=== PATIENT | male | born 1965 | race Caucasian/White ===

== ENCOUNTER 2017-07-27 17:57 | Inpatient (IN) | payer BC ==
[~2017-07-27] VITALS: Ht 185.4 cm; Wt 80.1 kg
[2017-07-27] MEDS ORDERED: morphine 4 MG/ML inj SYRINge IV ONE (18:25)
[2017-07-27] MEDS ORDERED: aspirin 81mg tab.chew PO ONE ×2 (18:25→23:55)
[2017-07-27] MEDS ORDERED: nitroGLYCERIN 0.4mg SUBLingual tab SL PRN (18:25)
[2017-07-27 18:41] LABS: BASOPHILS % (AUTO) 0 % (0-1); EOSINOPHILS # (AUTO) 0.2 X10'3 (0-0.9); EOSINOPHILS % (AUTO) 1.6 % (0-6); HEMATOCRIT 44.2 % (42.0-52.0); LYMPHOCYTES # (AUTO) 0.6 X10'3 (1.1-4.8); LYMPHOCYTES % (AUTO) 4.4 % (21-51); MEAN CORPUSCULAR HEMOGLOBIN 29.7 PG (27.0-31.0); MEAN CORPUSCULAR HGB CONC 33.9 % (33.0-36.5); MEAN CORPUSCULAR VOLUME 87.7 FL (78-98); MEAN PLATELET VOLUME 8.6 FL (7.4-10.4); MONOCYTES # (AUTO) 0.4 X10'3 (0-0.9); MONOCYTES % (AUTO) 2.9 % (2-12); NEUTROPHILS # (AUTO) 11.6 X10'3 (1.8-7.7); NEUTROPHILS % (AUTO) 91.1 % (42-75); PLATELET COUNT 257 X10'3 (140-440); RED BLOOD COUNT 5.04 X10'6 (4.70-6.10); RED CELL DISTRIBUTION WIDTH 13.1 % (11.5-14.5); WHITE BLOOD COUNT 12.7 X10'3 (4.5-11.0)
[2017-07-27 18:58] LABS: ALANINE AMINOTRANSFERASE 30 U/L (12-78); ALBUMIN/GLOBULIN RATIO 1.1 (1.1-1.5); ALKALINE PHOSPHATASE 64 IU/L (46-116); ANION GAP 12 (8-16); ASPARTATE AMINO TRANSFERASE 40 U/L (10-37); BILIRUBIN,TOTAL 0.7 MG/DL (0.1-1.0); BLOOD UREA NITROGEN 14 MG/DL (7-18); BUN/CREATININE RATIO 15.9 (5.4-32.0); CALCIUM 8.9 MG/DL (8.5-10.1); CHLORIDE 102 MMOL/L (99-107); CREATININE 0.88 MG/DL (0.60-1.10); GLUCOSE 141 MG/DL (70-104); MAGNESIUM 1.8 MG/DL (1.5-2.4); POTASSIUM 4.1 MMOL/L (3.5-5.1); SODIUM 140 MMOL/L (135-145); TOTAL CARBON DIOXIDE 25.9 MMOL/L (24-32); TOTAL PROTEIN 7.5 G/DL (6.4-8.2); eGFR > 90 ML/MIN
[2017-07-27] MEDS ORDERED: heparin 10,000 units/1 ML INJ IV PRN ×2 (19:00→23:45)
[2017-07-27] MEDS ORDERED: heparin 10,000 units/1 ML INJ IV ONE (19:00)
[2017-07-27] MEDS ORDERED: ondansetron/PF 4mg/2ml inj IV ONE (19:00)
[2017-07-27 19:16] LABS: INR 0.9 INR; PARTIAL THROMBOPLASTIN TIME 22 SECONDS (22-32); PROTHROMBIN TIME 9.8 SECONDS (9.0-12.0)
[2017-07-27] MEDS ORDERED: levoFLOXACIN-Levaquin 500mg/D5 100 ML IV ONE (19:45)
[2017-07-27] MEDS ORDERED: iohexol 350MG/ML 100ml bottle IV ONE ×3 (19:51→21:25)
[2017-07-27 19:54] LABS: TOTAL CELLS COUNTED 100
[2017-07-27 19:55] LABS: PLATELET ESTIMATE NORMAL
[2017-07-27] MEDS ORDERED: carVEDilol 3.125mg tablet PO SCH (20:00)
[2017-07-27] MEDS ORDERED: nitroGLYCERIN-Tridil 50MG/D5W 250 ML IV ONE (20:29)
[2017-07-27] MEDS ORDERED: fentaNYL/PF 50MCG/1 ML 2ML syringe ONE (20:30)
[2017-07-27] MEDS ORDERED: iohexol 350 MG/ML 50ML vial IV ONE (20:30)
[2017-07-27] MEDS ORDERED: heparin 1,000unit/ml 10ml vial 10 ML ONE (20:30)
[2017-07-27] MEDS ORDERED: LIDOcaine 1%/PF (10mg/ml) 5ml vial ONE (20:30)
[2017-07-27] MEDS ORDERED: midazolam 2 mg/2 ml injection ONE (20:30)
[2017-07-27] MEDS ORDERED: temazepam 15mg capsule PO PRN (21:00)
[2017-07-27] MEDS ORDERED: normal saline 1000ml 1,000 ML IV SCH ×2 (21:01→23:30)
[2017-07-27] MEDS ORDERED: mag hydrox/Alum hydrox/simeth 30ml oral suspension PO PRN (21:05)
[2017-07-27] MEDS ORDERED: potassium Cl 20 mEq SR tablet PO PRN ×2 (21:05)
[2017-07-27] MEDS ORDERED: acetaminophen 325mg tablet PO PRN (21:05)
[2017-07-27] MEDS ORDERED: ondansetron/PF 4mg/2ml inj IV PRN (21:05)
[2017-07-27] MEDS ORDERED: magnesium Cl slow-release 64mg tablet PO PRN (21:05)
[2017-07-27] MEDS ORDERED: magnesium 4gm in 100ml NS 100 ML IV PRN (21:05)
[2017-07-27] MEDS ORDERED: potassium Cl 40MEQ/NS 500ml 500 ML IV PRN ×2 (21:05)
[2017-07-27] MEDS ORDERED: morphine 2 MG/ML inj. syringe IV PRN (21:05)
[2017-07-27] MEDS ORDERED: magnesium hydroxide 30ml (MOM) UD suspension PO PRN (21:05)
[2017-07-27] MEDS ORDERED: magnesium 2GM in 50ml NS 50 ML IV PRN (21:05)
[2017-07-27] MEDS ORDERED: thiamine 100mg/ml 2ml inj. IV ONE (21:20)
[2017-07-27] MEDS ORDERED: dextrose 50%-water 50ml dispensing syringe IV PRN (21:20)
[2017-07-27] MEDS ORDERED: haloperidol lactate 5mg/ml inj IM PRN (21:20)
[2017-07-27] MEDS ORDERED: LORazepam 2 mg/ml vial IV PRN (21:20)
[2017-07-27] MEDS ORDERED: haloperidol 5mg tablet PO PRN (21:20)
[2017-07-27] MEDS ORDERED: tirofiban 5mg in NS 100mL 100 ML IV ONE ×2 (21:37→22:46)
[2017-07-27] MEDS ORDERED: furosemide 40mg/4ml inj ONE (22:12)
[2017-07-27] MEDS ORDERED: ticagrelor 90mg tablet ONE (22:12)
[2017-07-27 22:45] VITALS: BP 139/96
[2017-07-27 23:00] VITALS: BP 152/82
[2017-07-27] MEDS ORDERED: normal saline 1000ml 1,000 ML IV ONE (23:30)
[2017-07-27] MEDS ORDERED: OXAZEpam 15mg capsule PO PRN (23:45)
[2017-07-28] VITALS (24 sets, daily range): BP systolic 91–156; BP diastolic 58–89
[2017-07-28] MEDS ORDERED: cyclobenzaprine 10mg tablet PO PRN (00:05)
[2017-07-28] MEDS ORDERED: acetaminophen 325mg tablet PO PRN (00:05)
[2017-07-28] MEDS: LORazepam 1 MG tablet PO PRN (00:06)
[2017-07-28] MEDS: tirofiban 5mg in NS 100mL 100 ML IV SCH ×4 (03:10→17:55)
[2017-07-28 03:54] LABS: BASOPHILS # (AUTO) 0.1 X10'3 (0-0.2); BASOPHILS % (AUTO) 0.5 % (0-1); EOSINOPHILS # (AUTO) 0.1 X10'3 (0-0.9); HEMATOCRIT 40.7 % (42.0-52.0); HEMOGLOBIN 14.2 g/dl (14.0-17.9); LYMPHOCYTES # (AUTO) 0.5 X10'3 (1.1-4.8); LYMPHOCYTES % (AUTO) 4.2 % (21-51); MEAN CORPUSCULAR HGB CONC 34.9 % (33.0-36.5); MEAN CORPUSCULAR VOLUME 86.2 FL (78-98); MEAN PLATELET VOLUME 8.6 FL (7.4-10.4); MONOCYTES # (AUTO) 0.6 X10'3 (0-0.9); MONOCYTES % (AUTO) 4.7 % (2-12); NEUTROPHILS # (AUTO) 10.6 X10'3 (1.8-7.7); NEUTROPHILS % (AUTO) 89.6 % (42-75); PLATELET COUNT 274 X10'3 (140-440); RED BLOOD COUNT 4.73 X10'6 (4.70-6.10); RED CELL DISTRIBUTION WIDTH 13.6 % (11.5-14.5); WHITE BLOOD COUNT 11.8 X10'3 (4.5-11.0)
[2017-07-28 04:26] LABS: ALBUMIN 3.7 G/DL (3.4-5.0); ANION GAP 13 (8-16); BLOOD UREA NITROGEN 13 MG/DL (7-18); BUN/CREATININE RATIO 15.7 (5.4-32.0); CALCIUM 8.1 MG/DL (8.5-10.1); CHLORIDE 103 MMOL/L (99-107); CHOL/HDL RATIO 2.3 (0.00-4.99); CHOLESTEROL 143 MG/DL (0-200); CREATININE 0.83 MG/DL (0.60-1.10); GLUCOSE 140 MG/DL (70-104); HDL CHOLESTEROL 62 MG/DL (35-60); LDL CHOLESTEROL 75 MG/DL (50-100); POTASSIUM 3.6 MMOL/L (3.5-5.1); SODIUM 139 MMOL/L (135-145); TOTAL CARBON DIOXIDE 22.8 MMOL/L (24-32); TRIGLYCERIDES 27 MG/DL (20-135); eGFR > 90 ML/MIN
[2017-07-28 05:57] LABS: CKMB RELATIVE INDEX 15.7 RATIO (0-2.5); CREATINE KINASE 3524 U/L (39-308)
[2017-07-28] MEDS: K and/or MAG REPLACEMENT MC SCH (08:00)
[2017-07-28] MEDS ORDERED: aspirin 81mg tab.chew PO SCH (08:30)
[2017-07-28] MEDS: furosemide 20 MG/2 ML vial IV SCH ×2 (09:25→20:57)
[2017-07-28] MEDS: ticagrelor 90mg tablet PO SCH ×2 (09:25→20:57)
[2017-07-28] MEDS: potassium Cl 20 mEq SR tablet PO SCH ×2 (09:25→17:55)
[2017-07-28] MEDS: docusate sod 100mg capsule PO SCH ×2 (09:25→20:54)
[2017-07-28] MEDS: lisinopril 5mg tablet PO SCH (09:26)
[2017-07-28] MEDS: aspirin 81mg tab.chew PO SCH (09:27)
[2017-07-28] MEDS: spironolactone 25 MG tablet PO SCH (09:27)
[2017-07-28] MEDS: levoFLOXACIN-Levaquin 500mg/D5 100 ML IV SCH (09:27)
[2017-07-28] MEDS: metoprolol tartrate 25mg tablet PO SCH ×2 (09:27→20:54)
[2017-07-28] MEDS ORDERED: pneumococcal 23-VAL P-sac vacc 25 mcg/0.5ml vial IMVAC ONE (10:00)
[2017-07-28] MEDS ORDERED: FLU VACC QS2017-18 36MOS UP/PF 60 MCG/0.5 ML SYRINGE IMVAC ONE (10:00)
[2017-07-28] MEDS: morphine 2 MG/ML inj. syringe IV PRN ×2 (10:42→17:44)
[2017-07-28] MEDS: oseltamivir phos 75mg capsule PO SCH ×2 (12:43→20:54)
[2017-07-28 13:09] LABS: CKMB RELATIVE INDEX 8.1 RATIO (0-2.5)
[2017-07-28 13:33] LABS: TROPONIN I 52.49 NG/ML (0.0-0.05)
[2017-07-28] MEDS ORDERED: potassium Cl 20 mEq SR tablet PO STA (14:14)
[2017-07-28] MEDS ORDERED: magnesium 2GM in 50ml NS 50 ML IV ONE (14:15)
[2017-07-28] MEDS ORDERED: potassium Cl 20 mEq SR tablet PO PRN ×2 (14:20)
[2017-07-28] MEDS ORDERED: potassium Cl 40MEQ/250ML bag 250 ML IV PRN ×2 (14:20)
[2017-07-28] MEDS ORDERED: magnesium Cl slow-release 64mg tablet PO PRN (14:20)
[2017-07-28] MEDS ORDERED: potassium Cl 40MEQ/NS 500ml 500 ML IV PRN ×2 (14:20)
[2017-07-28] MEDS ORDERED: magnesium 4gm in 100ml NS 100 ML IV PRN (14:20)
[2017-07-28] MEDS ORDERED: magnesium 2GM in 50ml NS 50 ML IV PRN (14:20)
[2017-07-28] MEDS: thiamine 100mg tablet PO SCH (16:01)
[2017-07-28] MEDS: lactobacillus rhamnosus 10,000 MMU CELLS/CAPSULE PO SCH (17:54)
[2017-07-28] MEDS: magnesium hydroxide 30ml (MOM) UD suspension PO SCH (20:48)
[2017-07-28] MEDS: atorvastatin 20mg tablet PO SCH (20:48)
[2017-07-28 21:19] LABS: CKMB RELATIVE INDEX 4.9 RATIO (0-2.5)
[2017-07-28 21:45] LABS: TROPONIN I 56.06 NG/ML (0.0-0.05)
[2017-07-29] VITALS (21 sets, daily range): BP systolic 82–140; BP diastolic 55–94
[2017-07-29 05:49] LABS: BASOPHILS % (AUTO) 0.3 % (0-1); EOSINOPHILS # (AUTO) 0.1 X10'3 (0-0.9); EOSINOPHILS % (AUTO) 1.4 % (0-6); HEMATOCRIT 45.4 % (42.0-52.0); HEMOGLOBIN 15.7 g/dl (14.0-17.9); LYMPHOCYTES # (AUTO) 1.4 X10'3 (1.1-4.8); LYMPHOCYTES % (AUTO) 14.3 % (21-51); MEAN CORPUSCULAR HEMOGLOBIN 29.9 PG (27.0-31.0); MEAN CORPUSCULAR HGB CONC 34.5 % (33.0-36.5); MEAN CORPUSCULAR VOLUME 86.6 FL (78-98); MEAN PLATELET VOLUME 8.8 FL (7.4-10.4); MONOCYTES % (AUTO) 10.4 % (2-12); NEUTROPHILS % (AUTO) 73.6 % (42-75); PLATELET COUNT 271 X10'3 (140-440); RED BLOOD COUNT 5.24 X10'6 (4.70-6.10); RED CELL DISTRIBUTION WIDTH 13.8 % (11.5-14.5); WHITE BLOOD COUNT 9.5 X10'3 (4.5-11.0)
[2017-07-29] MEDS: tirofiban 5mg in NS 100mL 100 ML IV SCH (05:50)
[2017-07-29 06:00] LABS: ALBUMIN 3.4 G/DL (3.4-5.0); ANION GAP 11 (8-16); BLOOD UREA NITROGEN 16 MG/DL (7-18); BUN/CREATININE RATIO 18.2 (5.4-32.0); CALCIUM 8.5 MG/DL (8.5-10.1); CHLORIDE 103 MMOL/L (99-107); CREATININE 0.88 MG/DL (0.60-1.10); GLUCOSE 96 MG/DL (70-104); MAGNESIUM 2.2 MG/DL (1.5-2.4); POTASSIUM 4.2 MMOL/L (3.5-5.1); SODIUM 138 MMOL/L (135-145); TOTAL CARBON DIOXIDE 23.7 MMOL/L (24-32); eGFR > 90 ML/MIN
[2017-07-29] MEDS: docusate sod 100mg capsule PO SCH ×2 (08:00→19:10)
[2017-07-29] MEDS: metoprolol tartrate 25mg tablet PO SCH ×2 (08:00→19:10)
[2017-07-29] MEDS: K and/or MAG REPLACEMENT MC SCH ×2 (08:00)
[2017-07-29] MEDS: lisinopril 5mg tablet PO SCH (08:00)
[2017-07-29] MEDS: potassium Cl 20 mEq SR tablet PO SCH ×2 (08:07→12:44)
[2017-07-29] MEDS: ticagrelor 90mg tablet PO SCH ×2 (08:07→19:10)
[2017-07-29] MEDS: levoFLOXACIN-Levaquin 500mg/D5 100 ML IV SCH (08:07)
[2017-07-29] MEDS: spironolactone 25 MG tablet PO SCH (08:07)
[2017-07-29] MEDS: lactobacillus rhamnosus 10,000 MMU CELLS/CAPSULE PO SCH ×2 (08:07→17:20)
[2017-07-29] MEDS: thiamine 100mg tablet PO SCH (08:07)
[2017-07-29] MEDS: furosemide 20 MG/2 ML vial IV SCH (08:07)
[2017-07-29] MEDS: aspirin 81mg tab.chew PO SCH (08:08)
[2017-07-29] MEDS: LORazepam 1 MG tablet PO PRN (11:43)
[2017-07-29] MEDS: oseltamivir phos 75mg capsule PO SCH ×3 (12:20→21:39)
[2017-07-29] MEDS: atorvastatin 20mg tablet PO SCH (19:09)
[2017-07-29] MEDS: magnesium hydroxide 30ml (MOM) UD suspension PO SCH (19:11)
[2017-07-30] VITALS (7 sets, daily range): BP systolic 85–109; BP diastolic 50–69
[2017-07-30 06:56] LABS: BASOPHILS % (AUTO) 0.2 % (0-1); EOSINOPHILS # (AUTO) 0.1 X10'3 (0-0.9); EOSINOPHILS % (AUTO) 0.6 % (0-6); HEMATOCRIT 47.2 % (42.0-52.0); HEMOGLOBIN 16.2 g/dl (14.0-17.9); LYMPHOCYTES # (AUTO) 1.6 X10'3 (1.1-4.8); LYMPHOCYTES % (AUTO) 15.3 % (21-51); MEAN CORPUSCULAR HGB CONC 34.4 % (33.0-36.5); MEAN CORPUSCULAR VOLUME 87.2 FL (78-98); MEAN PLATELET VOLUME 9.1 FL (7.4-10.4); MONOCYTES # (AUTO) 1.1 X10'3 (0-0.9); MONOCYTES % (AUTO) 10.5 % (2-12); NEUTROPHILS # (AUTO) 7.6 X10'3 (1.8-7.7); NEUTROPHILS % (AUTO) 73.4 % (42-75); PLATELET COUNT 288 X10'3 (140-440); RED BLOOD COUNT 5.41 X10'6 (4.70-6.10); RED CELL DISTRIBUTION WIDTH 13.6 % (11.5-14.5); WHITE BLOOD COUNT 10.3 X10'3 (4.5-11.0)
[2017-07-30 07:27] LABS: ALBUMIN 3.2 G/DL (3.4-5.0); ANION GAP 11 (8-16); BLOOD UREA NITROGEN 19 MG/DL (7-18); BUN/CREATININE RATIO 21.1 (5.4-32.0); CALCIUM 8.9 MG/DL (8.5-10.1); CHLORIDE 101 MMOL/L (99-107); GLUCOSE 106 MG/DL (70-104); MAGNESIUM 2.2 MG/DL (1.5-2.4); POTASSIUM 3.8 MMOL/L (3.5-5.1); SODIUM 137 MMOL/L (135-145); TOTAL CARBON DIOXIDE 24.9 MMOL/L (24-32); eGFR 88 ML/MIN
[2017-07-30] MEDS: K and/or MAG REPLACEMENT MC SCH ×2 (08:00)
[2017-07-30] MEDS: lactobacillus rhamnosus 10,000 MMU CELLS/CAPSULE PO SCH ×2 (08:00→17:40)
[2017-07-30] MEDS: metoprolol tartrate 25mg tablet PO SCH (08:00)
[2017-07-30] MEDS: thiamine 100mg tablet PO SCH (08:01)
[2017-07-30] MEDS: potassium Cl 20 mEq SR tablet PO SCH ×2 (08:01→16:45)
[2017-07-30] MEDS: levoFLOXACIN-Levaquin 500mg/D5 100 ML IV SCH (08:01)
[2017-07-30] MEDS: aspirin 81mg tab.chew PO SCH (08:02)
[2017-07-30] MEDS: docusate sod 100mg capsule PO SCH ×2 (08:02→20:00)
[2017-07-30] MEDS: spironolactone 25 MG tablet PO SCH (08:04)
[2017-07-30] MEDS: lisinopril 5mg tablet PO SCH (08:04)
[2017-07-30] MEDS ORDERED: oseltamivir phos 75mg capsule PO ONE (09:30)
[2017-07-30] MEDS: ticagrelor 90mg tablet PO SCH ×2 (09:31→20:36)
[2017-07-30] MEDS: metoprolol tartrate 12.5mg (1/2 tablet) PO SCH (20:00)
[2017-07-30] MEDS: atorvastatin 20mg tablet PO SCH (20:34)
[2017-07-30] MEDS: oseltamivir phos 75mg capsule PO SCH (20:35)
[2017-07-30] MEDS: magnesium hydroxide 30ml (MOM) UD suspension PO SCH (20:36)
[2017-07-31 03:00] VITALS: BP 92/61
[2017-07-31 05:49] LABS: BASOPHILS % (AUTO) 0.2 % (0-1); EOSINOPHILS # (AUTO) 0.1 X10'3 (0-0.9); EOSINOPHILS % (AUTO) 1.4 % (0-6); HEMATOCRIT 46.5 % (42.0-52.0); HEMOGLOBIN 15.9 g/dl (14.0-17.9); LYMPHOCYTES # (AUTO) 2.1 X10'3 (1.1-4.8); LYMPHOCYTES % (AUTO) 23.1 % (21-51); MEAN CORPUSCULAR HEMOGLOBIN 29.8 PG (27.0-31.0); MEAN CORPUSCULAR HGB CONC 34.1 % (33.0-36.5); MEAN CORPUSCULAR VOLUME 87.2 FL (78-98); MEAN PLATELET VOLUME 8.6 FL (7.4-10.4); MONOCYTES # (AUTO) 0.8 X10'3 (0-0.9); MONOCYTES % (AUTO) 9.1 % (2-12); NEUTROPHILS # (AUTO) 6.1 X10'3 (1.8-7.7); NEUTROPHILS % (AUTO) 66.2 % (42-75); PLATELET COUNT 282 X10'3 (140-440); RED BLOOD COUNT 5.33 X10'6 (4.70-6.10); RED CELL DISTRIBUTION WIDTH 13.4 % (11.5-14.5); WHITE BLOOD COUNT 9.2 X10'3 (4.5-11.0)
[2017-07-31 06:03] LABS: ALBUMIN 3.2 G/DL (3.4-5.0); ANION GAP 12 (8-16); BLOOD UREA NITROGEN 22 MG/DL (7-18); CALCIUM 8.5 MG/DL (8.5-10.1); CHLORIDE 101 MMOL/L (99-107); GLUCOSE 134 MG/DL (70-104); POTASSIUM 3.6 MMOL/L (3.5-5.1); SODIUM 138 MMOL/L (135-145); TOTAL CARBON DIOXIDE 25.3 MMOL/L (24-32); eGFR 70 ML/MIN
[2017-07-31] MEDS ORDERED: NO HOME MEDS (07:19)
[2017-07-31] MEDS: metoprolol tartrate 12.5mg (1/2 tablet) PO SCH (08:00)
[2017-07-31] MEDS: lisinopril 5mg tablet PO SCH (08:00)
[2017-07-31] MEDS: K and/or MAG REPLACEMENT MC SCH ×2 (08:00)
[2017-07-31] MEDS: docusate sod 100mg capsule PO SCH (08:00)
[2017-07-31] MEDS: ticagrelor 90mg tablet PO SCH (08:16)
[2017-07-31] MEDS: lactobacillus rhamnosus 10,000 MMU CELLS/CAPSULE PO SCH (08:16)
[2017-07-31] MEDS: oseltamivir phos 75mg capsule PO SCH (08:17)
[2017-07-31] MEDS: thiamine 100mg tablet PO SCH (08:17)
[2017-07-31] MEDS: aspirin 81mg tab.chew PO SCH (08:18)
[2017-07-31] MEDS: levoFLOXACIN-Levaquin 500mg/D5 100 ML IV SCH (08:20)
[2017-07-31] MEDS: spironolactone 25 MG tablet PO SCH (08:22)
[2017-07-31 08:36] VITALS: BP 94/67
[2017-07-31 11:00] VITALS: BP 93/66
[2017-07-31] MEDS ORDERED: carVEDilol 3.125mg tablet PO SCH (11:00)
[2017-07-31] MEDS ORDERED: TICA90TA PO (11:11)
[2017-07-31] MEDS ORDERED: ATOR20TA66 PO (11:11)
[2017-07-31] MEDS ORDERED: COR3.125T PO (11:11)
[2017-08-01] MEDS ORDERED: levoFLOXACIN 500mg tablet PO SCH (11:00)
== END 2017-07-31 15:57 | disposition home or self-care (01) | DRG 246 ==
LOC: ER 17:57 → CICU 2S 21:01 → PCU 3S 07-29 19:30
PROVIDERS: ADMIT Internal Medicine; ATTEND Internal Medicine
PROC: B32T1ZZ Computerized Tomography (CT Scan) of Left Pulmonary Artery using Low Osmolar Contrast (ICD-10-PCS; principal; 2017-07-27)
PROC: 027034Z Dilation of Coronary Artery, One Artery with Drug-eluting Intraluminal Device, Percutaneous Approach (ICD-10-PCS; 2017-07-27)
PROC: B3201ZZ Computerized Tomography (CT Scan) of Thoracic Aorta using Low Osmolar Contrast (ICD-10-PCS; 2017-07-27)
PROC: B32S1ZZ Computerized Tomography (CT Scan) of Right Pulmonary Artery using Low Osmolar Contrast (ICD-10-PCS; 2017-07-27)
PROC: 4A023N7 Measurement of Cardiac Sampling and Pressure, Left Heart, Percutaneous Approach (ICD-10-PCS; 2017-07-27)
PROC: B2111ZZ Fluoroscopy of Multiple Coronary Arteries using Low Osmolar Contrast (ICD-10-PCS; 2017-07-27)
PROC: B2151ZZ Fluoroscopy of Left Heart using Low Osmolar Contrast (ICD-10-PCS; 2017-07-27)
DX: I21.4 Non-ST elevation (NSTEMI) myocardial infarction (principal); I50.21 Acute systolic (congestive) heart failure; I08.1 Rheumatic disorders of both mitral and tricuspid valves; K70.10 Alcoholic hepatitis without ascites; E78.00 Pure hypercholesterolemia, unspecified; E78.5 Hyperlipidemia, unspecified; F10.10 Alcohol abuse, uncomplicated; F12.90 Cannabis use, unspecified, uncomplicated; F17.200 Nicotine dependence, unspecified, uncomplicated; G24.9 Dystonia, unspecified; I25.10 Atherosclerotic heart disease of native coronary artery without angina pectoris; J11.1 Influenza due to unidentified influenza virus with other respiratory manifestations; Z82.49 Family history of ischemic heart disease and other diseases of the circulatory system; Z79.899 Other long term (current) drug therapy
CPT/HCPCS: 93306; 93458; 96365; 96375; 99291; C9600; 36415; 71045; 71275; 80048; 80053; 80061; 82550; 82553; 82948; 83735; 83880; 84484; 85025; 85347; 85610; 85730; 87070; 87502; 87503; 93005; 97116; 97162; 99152; 99153; A4620; A6213; A6257; A6402; A6449; C1725; C1769; C1874; J1644; J1940; J1956; J2001; J2250; J2270; J2405; J3010; J3246; J3411; J3475; J3490; J7030; Q9967

== ENCOUNTER 2018-01-01 20:08 | Emergency (ER) | payer BC ==
[~2018-01-01] VITALS: Ht 185.4 cm; Wt 81.8 kg
[~2018-01-01 20:08] MED LIST: ATOR20TA66 PO; COR3.125T PO; NO HOME MEDS; TICA90TA PO
[2018-01-01 20:39] LABS: BASOPHILS % (AUTO) 0.2 % (0-1); EOSINOPHILS # (AUTO) 0.1 X10'3 (0-0.9); EOSINOPHILS % (AUTO) 1.2 % (0-6); HEMATOCRIT 43.9 % (42.0-52.0); HEMOGLOBIN 15.1 g/dl (14.0-17.9); LYMPHOCYTES # (AUTO) 0.8 X10'3 (1.1-4.8); LYMPHOCYTES % (AUTO) 7.2 % (21-51); MEAN CORPUSCULAR HEMOGLOBIN 30.6 PG (27.0-31.0); MEAN CORPUSCULAR HGB CONC 34.4 % (33.0-36.5); MEAN CORPUSCULAR VOLUME 88.9 FL (78-98); MEAN PLATELET VOLUME 9.1 FL (7.4-10.4); MONOCYTES # (AUTO) 0.4 X10'3 (0-0.9); MONOCYTES % (AUTO) 3.2 % (2-12); NEUTROPHILS # (AUTO) 10.4 X10'3 (1.8-7.7); NEUTROPHILS % (AUTO) 88.2 % (42-75); PLATELET COUNT 217 X10'3 (140-440); RED BLOOD COUNT 4.94 X10'6 (4.70-6.10); RED CELL DISTRIBUTION WIDTH 13.9 % (11.5-14.5); WHITE BLOOD COUNT 11.8 X10'3 (4.5-11.0)
[2018-01-01 20:53] LABS: PARTIAL THROMBOPLASTIN TIME 21 SECONDS (22-32); PROTHROMBIN TIME 9.9 SECONDS (9.0-12.0)
[2018-01-01 20:58] LABS: ALANINE AMINOTRANSFERASE 48 U/L (12-78); ALBUMIN 4.1 G/DL (3.4-5.0); ALBUMIN/GLOBULIN RATIO 1.1 (1.1-1.5); ALKALINE PHOSPHATASE 72 IU/L (46-116); ANION GAP 7 (8-16); ASPARTATE AMINO TRANSFERASE 21 U/L (10-37); BILIRUBIN,TOTAL 0.7 MG/DL (0.1-1.0); BLOOD UREA NITROGEN 14 MG/DL (7-18); CALCIUM 9.2 MG/DL (8.5-10.1); CHLORIDE 103 MMOL/L (99-107); GLUCOSE 168 MG/DL (70-104); LIPASE 86 U/L (73-393); POTASSIUM 4.3 MMOL/L (3.5-5.1); SODIUM 140 MMOL/L (135-145); TOTAL CARBON DIOXIDE 30.5 MMOL/L (24-32); TOTAL PROTEIN 7.7 G/DL (6.4-8.2); eGFR 78 ML/MIN
[2018-01-01 22:13] LABS: CLARITY,URINE CLOUDY (Clear); COLOR,URINE YELLOW (Yellow); GLUCOSE, URINE NEGATIVE (Neg); KETONES,URINE NEGATIVE (Neg); LEUKOCYTE ESTERASE ,URINE NEGATIVE (Neg); NITRITES, URINE NEGATIVE (Neg); OCCULT BLOOD,URINE NEGATIVE (Neg); PH,URINE 8.5 (4.8-8.0); PROTEIN,URINE 30 mg/dl (Neg); UROBILINOGEN,URINE 0.2 E.U/dL (0.2-1.0)
[2018-01-01 22:16] LABS: UA COLLECTION TYPE CLN CATCH MIDSTREAM
[2018-01-01 22:18] LABS: AMORPHOUS PHOSPHATES 2+; BACTERIA,URINE NONE SEEN /HPF (Neg); MUCUS STRANDS FEW /LPF (Neg); RBC,URINE NONE SEEN /HPF (0-2); SQUAMOUS EPITHELIAL CELL,UR NONE SEEN /LPF (FEW); WBC,URINE NONE SEEN /HPF (0-4)
[2018-01-01] MEDS ORDERED: metoclopramide 5 mg/ml inj IV ONE (22:55)
[2018-01-02] MEDS ORDERED: ONDA8TAB9 PO (00:26)
[2018-01-02 00:59] VITALS: BP 16/119
== END 2018-01-02 01:01 | disposition home or self-care (01) ==
LOC: ER 20:08
DX: R10.9 Unspecified abdominal pain (principal); R11.2 Nausea with vomiting, unspecified; R61 Generalized hyperhidrosis; F12.90 Cannabis use, unspecified, uncomplicated; I10 Essential (primary) hypertension; I25.10 Atherosclerotic heart disease of native coronary artery without angina pectoris; E78.00 Pure hypercholesterolemia, unspecified; I25.2 Old myocardial infarction; Z98.61 Coronary angioplasty status; Z79.899 Other long term (current) drug therapy
CPT/HCPCS: 36415; 71045; 80053; 81001; 83690; 84484; 85025; 85610; 85730; 93005; 96374; 99285; J2765; 99284